=== PATIENT | male | born 1940 | race Caucasian/White ===

== ENCOUNTER 2024-11-26 14:54 | Emergency (ER) | payer MEDICARE, OTHER, SELFPAY ==
[2024-11-26 14:56] VITALS: BP 144/72; PULSE 88; RESP 16; TEMP 36.6; O2SAT 96
--- NOTE | 2024-11-26 16:00 | ED.GENADULT ---
HPI - General Adult General Chief complaint: Recheck/Abnormal Lab/Rx Stated complaint: med refill Time Seen by Provider: 11/26/24 15:09 History of Present Illness HPI narrative: This is an 83-year-old male presenting for medication refill. He ran out of his metoprolol 200 mg extended-release and [facility] [employer] [facility] [place]. Patient has no complaints at this time. Would like a refill of his medications. Exam Narrative: APPEARANCE: No apparent distress. Head: atraumatic. EYES: EOMI, NOSE: Atraumatic NECK: Trachea midline RESPIRATORY: No increased rate of breathing clear to auscultation CARDIOVASCULAR: RRR, no peripheral edema ABDOMINAL: Non-distended MUSCULOSKELETAl: No obvious deformities NEURO: Alert. Moving 4/4 extremities SKIN:: Warm, dry. Normal color PSYCHIATRIC: Normal affect Course Vital Signs Vital signs: Vital Signs Temperature 97.8 F 11/26/24 14:56 Pulse Rate 88 11/26/24 14:56 Respiratory Rate 16 11/26/24 14:56 Blood Pressure 144/72 H 11/26/24 14:56 Pulse Oximetry 96 11/26/24 14:56 Oxygen Delivery Room Air 11/26/24 14:56 Temperature 97.8 F 11/26/24 14:56 Pulse Rate 88 11/26/24 14:56 Respiratory Rate 16 11/26/24 14:56 Blood Pressure 144/72 H 11/26/24 14:56 Pulse Oximetry 96 11/26/24 14:56 Oxygen Delivery Room Air 11/26/24 14:56 Medical Decision Making MDM Narrative Medical decision making narrative: -Course: 83-year-old male requesting refill on his Toprol. This was provided. Patient discharged Vital Signs Vital Signs: Vital Signs Temperature 97.8 F 11/26/24 14:56 Pulse Rate 88 11/26/24 14:56 Respiratory Rate 16 11/26/24 14:56 Blood Pressure 144/72 H 11/26/24 14:56 Pulse Oximetry 96 11/26/24 14:56 Oxygen Delivery Room Air 11/26/24 14:56 Temperature 97.8 F 11/26/24 14:56 Pulse Rate 88 11/26/24 14:56 Respiratory Rate 16 11/26/24 14:56 Blood Pressure 144/72 H 11/26/24 14:56 Pulse Oximetry 96 11/26/24 14:56 Oxygen Delivery Room Air 11/26/24 14:56 Discharge Plan Discharge Clinical Impression: Encounter for medication refill Patient Disposition: Home Condition: Stable Instructions: Antibiotic Form, Medicine Refill (ED) Patient Language: [place] Prescriptions: New metoprolol succinate 200 mg tablet extended release 24 hr 200 mg PO DAILY Qty: 30 0RF Follow-up/Referrals: PHYSICIAN NOT ON STAFF,NONSTAFF [Primary Care Provider] -
--- NOTE | 2024-11-26 16:13 | PC.NURSE ---
patient to [facility] asking if he can go due to MD telling him he will refill his prescription. pt advised to wait in room until nurse comes with discharge papers. patient back in room and Ale Sanchez RN aware.
--- OUTSIDE RECORDS SUMMARY | 2024-11-26 16:20 | XMS_ITS | Clinical Summary ---
Author Organization [facility] Address formerly [facility] [place] [address] Care Team Providers Care Testing Shaking Shipping Name Role Phone Imer Ledesma MD Primary Care Provider [phone] Allergies Active Allergy Reactions Criticality Noted Date Comments Atorvastatin Leg Pain,Myalgias,Unknown Medium 01/10/20 Citric Acid Itching,Throat swelling,Anaphylaxis High 08/31/2024 citric acid Simvastatin Hives Low 10/16/2007 Medications REFRESH PLUS 0.5 % ophthalmic solution Place into both eyes as needed. 12/16/2023 Active fluticasone propionate (FLONASE) 50 MCG/ACT nasal spray 1 spray by Each Nostril route daily as needed for Rhinitis. 10/19/2024 Active gabapentin (NEURONTIN) 300 MG capsule Take 2 capsules (600 mg total) by mouth daily. 10/19/2024 Active JANUVIA 100 MG tablet Take 1 tablet (100 mg total) by mouth daily. 10/19/2024 Active PRADAXA 150 MG Cap daily. 10/19/2024 Active metoprolol succinate ER (TOPROL-XL) 200 MG 24 hr tablet 1 tablet (200 mg total) daily. 10/19/2024 Active torsemide (DEMADEX) 20 MG tablet Take 1 tablet (20 mg total) by mouth as needed. 10/19/2024 Active SYNTHROID 75 MCG tablet every morning. 10/19/2024 Active rosuvastatin (CRESTOR) 40 MG tablet Take 1 tablet (40 mg total) by mouth daily. 10/19/2024 Active Active Problems Problem Noted Date Diagnosed Date Other cirrhosis of liver (CMS/HCC HHS/HCC) 11/26 History of esophageal varices 11/26/2024 Ischemic cardiomyopathy 10/20/2024 Overview (10/20/2024): [employer]link Evera ICD implanted 08/10/2016 for ICM/CAD Atrial tachycardia ([facility]/HCC) 10/15/2024 Atypical chest pain 10/15/2024 Vitreous degeneration of both eyes 10/15/2024 History of transient ischemic attack 10/15/2024 History of tricuspid valve repair 10/15/2024 Ventricular premature depolarization 10/15/2024 Aneurysm of aortic root ([facility]/HCC) 09/16/2024 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) 09/16/2024 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/16/2024 Arteriosclerosis of coronary artery 09/16/2024 Overview (09/16/2024): Aug 17, 2024 Entered By: GAVI KENT Comment: CABG, stents Anxiety 09/16/2024 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, stage III 09/16/2024 Carcinoma of prostate ([facility]) 09/17/19 25 Cerebrovascular accident (CVA) ([facility]) 09/16/2024 Overview (09/16/2024): Jan 24, 2009 Entered By: JERMAINE JUAN MD Comment: 11/16 cerebellar Heart failure with reduced e jection fraction ([facility]) 09/16/2024 Hyperlipidemia 09/16/2024 Persistent atrial fibrillation ([facility]) 09/16/2024 Presence of automatic cardioverter/defibrillator (AICD) 09/16/2024 Overview (10/20/2024): Carelink Evera ICD implanted 08/10/2016 for ICM/CAD Sick sinus syndrome ([facility]) 09/16/2024 Stage 3 chronic kidney disease 09/16/2024 Type 2 diabetes mellitus wit h diabetic chronic kidney disease 09/16/2024 Aneurysm of thoracic aorta 06/30/2024 Coronary atherosclerosis 06/30/2024 Esophageal varices without bleeding ([facility]) 06/30/2024 Tricuspid valve disorder 06/30/2024 Essential hypertension 06/30/2024 Type 2 diabetes mellitus ([facility]) 06/29 Interstitial lung disease ([facility]) 10/2023 Encounters Date Type Department Care Team Description 11/26/2024 Orders Only [facility]ispec[facility]ty Care - [facility] [address] [facility] [place] [id number] Yfn Jaffe MD 11/25/2024 11:20 AM CDT [facility] [address] [facility] [facility] [place] [phone] Tiffani Castro NP New Patient (Establish care ) 11/25/2024 Travel 10/27/2024 Results Follow-Up [facility], [place] [address] Mariaelena Faith RN USE ECHOCARDIOGRAM W CON 10/23/2024 11:00 AM CDT - 10/23/2024 11:59 PM CDT Hospital Encounter [facility] [place] [address] Mark Salazar MD Discharge Disposition: Home or Self Care (Routine Discharge) 10/23/2024 Travel 10/20/2024 Scan [facility], [address] [address] Scanned, Doc Pccl 10/20/2024 Scan [facility], [address] [address] Kiah Diaz MA 10/19/2024 12:30 PM CDT Office Visit [facility], [address] [place] [address] Manfred Hudson MD Sick Sinus Syndrome (Medt Pacer) 10/19/2024 Travel 09/16/2024 11:15 AM CDT Office Visit [facility], [facility] [address] [place] [address] Mark Salazar MD Atrial Fibrillation (Consult) 09/16/2024 Travel 08/31/2024 10:54 AM CDT - 08/31/2024 11:53 AM CDT Hospital Encounter [facility] [address] [place] [address] Ellie Gutierrez DO Sinus Problem Discharge Disposition: Home or Self Care (Routine Discharge) 08/31/2024 Travel from Last 3 Months Family History Medical History Relation Comments No Known Problems Brother Heart Attack Father Lung Cancer Father Stroke Father No Known Problems Mother Relation Status Comments Brother Father Mother Social History Tobacco Use Types Packs/Day Years Used Date Smoking Tobacco: Never Passive Smoke Exposure: Never Smokeless Tobacco: Never Tobacco Cessation:Counseling Given: No Alcohol Use Standard Drinks/Week Comments Never 0 (1 standard drink = 0.6 oz pur e alcohol) PHQ-2 Answer Date Recorded Patient Health Questionnaire-2 Score 0 11/25/2024 Sex and Gender Information Value Date Recorded Sex Assigned at Male 07/02/2024 11:08 AM MEDICAL RECORDS ADMINISTRATOR Legal Sex Male 11:07 AM MEDICAL RECORDS ADMINISTRATOR Gender Identity Male 11/25/2024 11:29 AM CDT Sexual Orientation Not on file Last Filed Vital Signs Vital Sign Reading Time Taken Comments Blood Pressure 130/76 11/25/2024 11:29 AM CDT Pulse 80 11/25/2024 11:29 AM CDT Temperature 36.4 C (97.5 F) 11/25/2024 11:29 AM CDT Respiratory Rate 22 11/25/2024 11:29 AM CDT Oxygen Saturation 98% 11/25/2024 11:29 AM CDT Inhaled Oxygen Concentration - - Weight 96.2 kg (212 lb) 11/25/2024 11:29 AM CDT Height 185.4 cm (6' 1) 11/25/2024 11:29 AM CDT Body Mass Index 27.97 11/25/2024 11:29 AM CDT Plan of Treatment Upcoming Encounters Date Type Department Care Team (Late st Contact Info) Description 12/15/2024 9:[address] [facility] [place] [address] Tiffani Castro NP [address] [facility] [address] [place] [address] 12/21/2024 8:20 AM CDT Office Visit [facility] Mult[facility] Care - [facility] [address] [facility] [place] [address] Omari Christie MD [address] [place] [address] [address] [place] [address] 12/29/2024 10:30 AM CDT Office Visit [facility], [address] [place] [address] Mark Salazar MD [address] [facility] [address] [place] [address] 01/25/2025 2:05 PM CDT Allied Health/Nurse Visit [facility], [address] [place] [address] Manfred Hudson MD [address] [facility]. [address] [place] [address] 07/19/2025 11:00 AM MEDICAL RECORDS ADMINISTRATOR Hospital Encounter [facility] One Day [place] [address] Yfn Jaffe MD [address] [facility] [address] [place] [address] 07/19/2025 11:00 AM MEDICAL RECORDS ADMINISTRATOR - 07/19/2025 11:30 AM MEDICAL RECORDS ADMINISTRATOR Surgery [facility] Endo/[place] [address] Yfn Jaffe MD [address] [facility] [address] [place] [address] EGD 10/25/2025 11:15 AM CDT Office Visit [facility], [address] [place] [address] Manfred Hudson MD [address] [facility]. [address] [place] [address] Scheduled Procedures Name Priority Associated Diagnoses Date/Ti me EGD Other cirrhosis of liver (CMS/HCC HHS/HCC) History of esophageal varices 07/19/2025 11:00 AM MEDICAL RECORDS ADMINISTRATOR Health Maintenance Due Date Last Done Comments ASCVD LDL 1940 Kidney Health Evaluation 1940 Hemoglobin A1C 1940 Lipid Panel 1940 Diabetes: Retinopathy Eye Exam 12/28/1959 Annual Medicare Wellness Visit 2006 RSV Immunization or 60+ Years (1 - 1-dose 75+ series) 2016 COVID-19 Vaccine ( - season) 2024 04/21/2021, 08/06/2020, 07/02/2020 DTaP, Tdap and Td Vaccines (4 - Td or Tdap) 08/18/2024 08/18/2014, 08/08/2014, 11/20/2013, Additional history exists Pneumococcal Vaccine: 50+ Years Completed 05/03/2014, 06/06/2012, 07/14/2007, Additional history exists Zoster Vaccines Completed 04/16/2023, 0 02/2021, 02/10/2021, Additional history exists PHQ-2 (Physician [place]) Completed 11/25/2024 Meningococcal B Vaccine Aged Out No l onger eligible based on patient's age to complete this topic Meningococcal Vaccine Aged Out No mundo amparo eligible based on patient's age to complete this topic RSV Immunizations Under 20 Months Aged Out No longer eligible based on patient's age to complete this topic Goals Goal Patient Goal Type Associated Problems Recent Progress Patient-Stated? Author Autogenera merrick Goal Care Plan Autogenerated Problem No Fatuma Hooper, [facility] Medical Devices Implanted Type Area Acquisitions Logistics Analyst Device Identifier Shelf Expiration Date Model / Serial / Lot Ra Lead [id number] /14/2010 Implanted:Qty : 1 on 09/21/2009 Lead Implant [employer] CARDIAC RHYTHM AND HEART FAILURE - DIV M [id number] / [id number] / Description:RA-Appendage Rv Lead [id number]-Ter-5 /14/2010 Implanted:Qty : 1 on 09/21/2009 Lead Implant [employer] CARDIAC RHYTHM AND HEART FAILURE - DIV M [id number] / [id number] / Description:RV-[place] Pacemaker-Mdt -Ever-08/11/19 17 Implanted:Qty : 1 on 08/10/2016 Pacemaker [employer] CARDIAC RHYTHM AND HEART FAILURE - DIV M [id number] / [id number] / Procedures Procedure Name Priority Date/Time Associated Diagnosis Comments USE ECHOCARDIOGRAM W CON Routine 025 12:05 PM CDT Ischemic cardiomyopathy ELECTROCARDIOGRAM (NON MIDMARK ACQUIRED) Routine 09/16/2024 11:15 AM CDT Atrial fibrillation ([facility]) CORONAVIRUS (COVID 19) STAT 11:25 AM CDT STREP A RAPID STAT 08/31/2024 11:25 AM CDT from Last 3 Months Results * USE ECHOCARDIOGRAM W CON (10/23/2024 12:05 PM CDT) Anatomical Region Laterality Modality NA Echocardiogram 10/23/2024 11:1 7 AM CDT Narrative 10/26/2024 4:32 PM CDT Echocardiography Report Pat.Name: ORIANA SAVAGE Pat.ID: [id number] .Date: 10/23/2024 : [id number] SHANITAFIA Estes EWDPROV EWDPROV Exam Time: 11:17:00 AM Study Type:ECHO WITH CARDIAC DOPPLER COMP Height: 73 in Weight: 211 lb BSA: 2.2 m2 Age: 7 1940,83Y Sex: M BP: 143/77 HR: 73 bpm Sonogrphr: Liz Juarez [facility] Pat. Stat.:Outpatient Reason for Study:Cardiomyopathy-ischemic Procedures: 2D, M-mode, Doppler, Color Flow, Definity was used to enhance endocardial definition. The study quality is technically difficult. Race: W ++++++++++++++++++++++++++++++++++++ SUMMARY: ++++++++++++++++++++++++++++++++++++ The left ventricular size is normal. The left ventricular systolic function is mildly depressed. Estimated left ventricular ejection fraction is 45-50%. Mild concentric left ventricular hypertrophy. Left ventricular diastolic function is not reliably assessed. Moderate hypokinesis anteroseptal wall. The right ventricular size is normal. Right ventricular systolic function is mildly depressed. A pacemaker wire is visualized in the right ventricle and right atrium. The left atrial size is mildly enlarged. Right atrial size is mildly enlarged. Mild aortic regurgitation. Normally functioning tissue prosthetic tricuspid valve. A trace of tricuspid regurgitation. Mean gradient 4 mmHg ++++++++++++++++++++++++++++++++++++ FINDINGS: ++++++++++++++++++++++++++++++++++++ LV: The left ventricular size is normal. The left ventricular systolic function is mildly depressed. Estimated left ventricular ejection fraction is 45-50%. Mild concentric left ventricular hypertrophy. Left ventricular diastolic function is not reliably assessed. WM: Moderate hypokinesis anteroseptal wall. RV: The right ventricular size is normal. Right ventricular systolic function is mildly depressed. A pacemaker wire is visualized in the right ventricle. IVS: No evidence of ventricular septal defect. LA: The left atrial size is mildly enlarged. The left atrial volume is mildly increased (34- 41ml/M2). RA: Right atrial size is mildly enlarged. A pacemaker wire is visualized in the right atrium. IAS: Atrial septum appears intact. STEFFI: No evidence of pericardial effusion. AO: Normal aortic root. The aortic root measures 3.8 cm. The proximal ascending aorta measures 3.7cm. PA: Estimated right atrial pressure of 8 mmHg. SVn: Inferior vena cava is mildly enlarged. Inferior vena cava shows >50% collapse with respiration consistent with normal right atrial pressure. AV: The aortic valve is trileaflet. No evidence of aortic valve stenosis. Mild aortic regurgitation. Mild calcification of aortic valve leaflets. MV: Trace mitral regurgitation. No evidence of mitral valve stenosis. PV: Trace pulmonic regurgitation. No evidence of pulmonic valve stenosis. TV: A trace of tricuspid regurgitation. Mean gradient 4 mmHg Normally functioning tissue prosthetic tricuspid valve. ++++++++++++++++++++++++++++++++++++ MEASUREMENTS: ++++++++++++++++++++++++++++++++++++ DOPPLER LVOT LVOTpkPG 2 mmHg LVOTmnPG 1 mmHg LVOTpkVel 61.7 cm/s (70-110)+* LVOT SV 55 ml LVOT TVI 14.4 cm Pulmonary Veins PVnpkVeld 43.3 cm/s PVnVs/Vd 0.6 PVnpkVels 27.6 cm/s PVn A Dur 141 msec AV Forward Flow AV TVI 25.4 cm AV pkPG 5 mmHg AV pkVel 107 cm/s (100-170)+ Area (TVI) 2.15 cm2 (3-5)* AV mnPG 2 mmHg Area (Chris) 2.19 cm2 (3-5)* AV Regurg Flow AV pkVel 394 cm/s AV P1/2t 553 msec AV pkPG 62 mmHg MV Forward Flow MV mnPG 2 mmHg MV pkPG 5 mmHg PV Forward Flow PV pkVel 90.1 cm/s (60-90)+* PV AC 129 msec PV pkPG 3 mmHg PV Regurg Flow PV pkVel 82.5 cm/s TV Forward Flow TV mnVel 92.8 cm/s TV E/A 1.3 TV mnPG 4 mmHg TV pkE 106 cm/s TV pkPG 6 mmHg TV pkA 80.2 cm/s TV TVI 45.4 cm Lat E' Lat e 8.08 cm/s Med E' Med e 5.34 cm/s Aortic Valve Aortic Valve Ar 0.98 Aortic Valve Ve 0.58 PV Antegrade Flow Acceleration Sl 721 cm/s2 PV Regurgitant Flow Peak Gradient ( 3 mmHg Right Ventricle Right Ventricle 7.15 cm/s TV Antegrade Flow Peak Velocity 126 cm/s 2D Left Ventricle LVIDd 5.3 cm (3.6-5.2)* LV ESV 41.4 ml LVIDs 4.4 cm (2.3-3.9)* LV ESV 55.2 ml LngAxd 7.44 cm LVESV BP 48.7 ml LngAxd 8.44 cm LV EF 46.2 % LV EDV 77.1 ml LV EF 50.7 % LV EDV 112 ml LV EF BP 50.6 % LVEDV BP 98.6 ml LV SV 35.6 ml LngAxs 6.8 cm LV SV 56.8 ml LngAxs 7.18 cm LV SV BP 49.9 ml LVPW LVPWd 0.9 cm Right Ventricle RVIDd 2.8 cm (2.6-4.3) Right Ventricle 32 mm Right Ventricle 37 mm Right and Left 0.528 Major Conover 79 mm Ventricular Septum IVSd 1.2 cm Left Atrium LA VOLBP 87.7 ml Aorta Ao Rtd 4 cm (zsc 2.8)* LVOT LVOT 2.2 cm LVOTArea 3.8 cm2 Ratios IVS LA Biplane LAVol I BP 39.9 ml/m2 MMODE Ratios LA/Ao 1.15 (0.87-1.1)* Left Atrium LAIDs 4.6 cm TA Tricuspid Annul 15.1 mm <Electronic Signature> 10/26/2024 04:32 PM Mark Salazar M.D. Procedure Note Mark Salazar MD - 10/26/2024 Echocardiography Report Pat.Name: ORIANA SAVAGE Pat.ID: [id number] .Date: 10/23/2024 : [id number] MARTIN Estes EWDPROV EWDPROV Exam Time: 11:17:00 AM Study Type:ECHO WITH CARDIAC DOPPLER COMP Height: 73 in Weight: 211 lb BSA: 2.2 m2 Age: 7 1940,83Y Sex: M BP: 143/77 HR: 73 bpm Sonogrphr: Liz Juarez [facility] Pat. Stat.:Outpatient Reason for Study:Cardiomyopathy-ischemic Procedures: 2D, M-mode, Doppler, Color Flow, Definity was used to enhance endocardial definition. The study quality is technically difficult. Race: W ++++++++++++++++++++++++++++++++++++ SUMMARY: ++++++++++++++++++++++++++++++++++++ The left ventricular size is normal. The left ventricular systolic function is mildly depressed. Estimated left ventricular ejection fraction is 45-50%. Mild concentric left ventricular hypertrophy. Left ventricular diastolic function is not reliably assessed. Moderate hypokinesis anteroseptal wall. The right ventricular size is normal. Right ventricular systolic function is mildly depressed. A pacemaker wire is visualized in the right ventricle and right atrium. The left atrial size is mildly enlarged. Right atrial size is mildly enlarged. Mild aortic regurgitation. Normally functioning tissue prosthetic tricuspid valve. A trace of tricuspid regurgitation. Mean gradient 4 mmHg ++++++++++++++++++++++++++++++++++++ FINDINGS: ++++++++++++++++++++++++++++++++++++ LV: The left ventricular size is normal. The left ventricular systolic function is mildly depressed. Estimated left ventricular ejection fraction is 45-50%. Mild concentric left ventricular hypertrophy. Left ventricular diastolic function is not reliably assessed. WM: Moderate hypokinesis anteroseptal wall. RV: The right ventricular size is normal. Right ventricular systolic function is mildly depressed. A pacemaker wire is visualized in the right ventricle. IVS: No evidence of ventricular septal defect. LA: The left atrial size is mildly enlarged. The left atrial volume is mildly increased (34- 41ml/M2). RA: Right atrial size is mildly enlarged. A pacemaker wire is visualized in the right atrium. IAS: Atrial septum appears intact. STEFFI: No evidence of pericardial effusion. AO: Normal aortic root. The aortic root measures 3.8 cm. The proximal ascending aorta measures 3.7cm. PA: Estimated right atrial pressure of 8 mmHg. SVn: Inferior vena cava is mildly enlarged. Inferior vena cava shows >50% collapse with respiration consistent with normal right atrial pressure. AV: The aortic valve is trileaflet. No evidence of aortic valve stenosis. Mild aortic regurgitation. Mild calcification of aortic valve leaflets. MV: Trace mitral regurgitation. No evidence of mitral valve stenosis. PV: Trace pulmonic regurgitation. No evidence of pulmonic valve stenosis. TV: A trace of tricuspid regurgitation. Mean gradient 4 mmHg Normally functioning tissue prosthetic tricuspid valve. ++++++++++++++++++++++++++++++++++++ MEASUREMENTS: ++++++++++++++++++++++++++++++++++++ DOPPLER LVOT LVOTpkPG 2 mmHg LVOTmnPG 1 mmHg LVOTpkVel 61.7 cm/s (70-110)+* LVOT SV 55 ml LVOT TVI 14.4 cm Pulmonary Veins PVnpkVeld 43.3 cm/s PVnVs/Vd 0.6 PVnpkVels 27.6 cm/s PVn A Dur 141 msec AV Forward Flow AV TVI 25.4 cm AV pkPG 5 mmHg AV pkVel 107 cm/s (100-170)+ Area (TVI) 2.15 cm2 (3-5)* AV mnPG 2 mmHg Area (Chris) 2.19 cm2 (3-5)* AV Regurg Flow AV pkVel 394 cm/s AV P1/2t 553 msec AV pkPG 62 mmHg MV Forward Flow MV mnPG 2 mmHg MV pkPG 5 mmHg PV Forward Flow PV pkVel 90.1 cm/s (60-90)+* PV AC 129 msec PV pkPG 3 mmHg PV Regurg Flow PV pkVel 82.5 cm/s TV Forward Flow TV mnVel 92.8 cm/s TV E/A 1.3 TV mnPG 4 mmHg TV pkE 106 cm/s TV pkPG 6 mmHg TV pkA 80.2 cm/s TV TVI 45.4 cm Lat E' Lat e 8.08 cm/s Med E' Med e 5.34 cm/s Aortic Valve Aortic Valve Ar 0.98 Aortic Valve Ve 0.58 PV Antegrade Flow Acceleration Sl 721 cm/s2 PV Regurgitant Flow Peak Gradient ( 3 mmHg Right Ventricle Right Ventricle 7.15 cm/s TV Antegrade Flow Peak Velocity 126 cm/s 2D Left Ventricle LVIDd 5.3 cm (3.6-5.2)* LV ESV 41.4 ml LVIDs 4.4 cm (2.3-3.9)* LV ESV 55.2 ml LngAxd 7.44 cm LVESV BP 48.7 ml LngAxd 8.44 cm LV EF 46.2 % LV EDV 77.1 ml LV EF 50.7 % LV EDV 112 ml LV EF BP 50.6 % LVEDV BP 98.6 ml LV SV 35.6 ml LngAxs 6.8 cm LV SV 56.8 ml LngAxs 7.18 cm LV SV BP 49.9 ml LVPW LVPWd 0.9 cm Right Ventricle RVIDd 2.8 cm (2.6-4.3) Right Ventricle 32 mm Right Ventricle 37 mm Right and Left 0.528 Major Conover 79 mm Ventricular Septum IVSd 1.2 cm Left Atrium LA VOLBP 87.7 ml Aorta Ao Rtd 4 cm (zsc 2.8)* LVOT LVOT 2.2 cm LVOTArea 3.8 cm2 Ratios IVS LA Biplane LAVol I BP 39.9 ml/m2 MMODE Ratios LA/Ao 1.15 (0.87-1.1)* Left Atrium LAIDs 4.6 cm TA Tricuspid Annul 15.1 mm <Electronic Signature> 10/26/2024 04:32 PM Mark Salazar M.D. 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1940 Requested By: MARK SALAZAR Order Number: [id number] Reading MD: Zach Tapia Measurements Intervals Conover Rate: 72 P: -23 HI: 273 QRS: 8 QRSD: 102 T: 18 QT: 394 QTc: 434 Interpretive Statements ELECTRONIC ATRIAL PACEMAKER ABNORMAL RHYTHM ECG Procedure Note Zach Tapia MD - 09/22/20[facility]: 2024-[facility]-16 Pat Name: ORIANA SAVAGE Department: 112 Room: 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1940 Requested By: MARK SALAZAR Order Number: [id number] Reading MD: Zach Tapia Measurements Intervals [place] Rate: 72 P: -23 HI: 273 QRS: 8 QRSD: 102 T: 18 QT: 394 QTc: 434 Interpretive Statements ELECTRONIC ATRIAL PACEMAKER ABNORMAL RHYTHM ECG us Mark Salazar MD PROCEDURES-ORDERABLE NO Salma UREÑA Final Result SIRISHA CABRERA * CORONAVIRUS (COVID 19) (08/31/2024 11:25 AM CDT) CORONAVIRUS SARS COV 2 RNA NEGATIVE NEGATIVE 08/31/2024 11:43 AM CDT [facility] Comment: NEGATIVE RESULTS DO NOT RULE OUT COVID 19 AND SHOULD NOT BE USED THE SOLE BASIS FOR TREATMENT OR PATIENT MANAGEMENT DECISIONS, INCLUDING INFECTION CONTROL DECISIONS. NEGATIVE RESULTS SHOULD BE CONSIDERED IN THE CONTEXT OF A PATIENT'S RECENT EXPOSURES, HISTORY AND THE PRESENCE OF CLINICAL SIGNS AND SYMPTOMS CONSISTENT WITH COVID 19. THE ID NOW COVID-19 2.0 TEST HAS BEEN AUTHORIZED BY THE FDA UNDER EAU FOR USE BY AUTHORIZED LABORATORIES. PERFORMED BY NUCLEIC ACID AMPLIFICATION FOR MOLECULAR QUALITATIVE DETECTION OF SARS-COV-2. SPECIMEN TYPE NASAL 08/31/2024 11:27 AM CDT [facility] NASAL STRUCTURE / Unknown 08/31/2024 11:25 AM CDT Ellie Gutierrez DO MICROBIOLOGY - GENERAL ORDERA BLES Final Result Performing Organization Address City/[facility] [place] [address], * STREP A RAPID (08/31/2024 11:25 AM CDT) SPECIMEN TYPE THROAT 08/31/2024 11:27 AM CDT [facility] RAPID STREP TEST NEGATIVE NEGATIVE 08/31/2024 11:37 AM CDT [facility] STRUCTURE OF ANTERIOR PORTION OF NECK / Unknown 08/31/2024 11:25 AM CDT Ellie Gutierrez DO MICROBIOLOGY - GENERAL ORDERA BLES Final Result Performing Organization Address [facility] [place] [address], from Last 3 Months Additional Health Concerns Active Problems Noted Date Diagnosed Date Autogenerated Problem 11/26/2024 Insurance MEDICARE [facility] Care Teams Testing Shaking Shipping Relationship Specialty Start Date End Date Imer Ledesma MD [address] [facility] [address] [place] [id number] PCP - General INTERNAL MEDICINE 08/31/24
--- OUTSIDE RECORDS SUMMARY | 2024-11-26 16:20 | XMS_ITS | Encounter Summary ---
Author Organization [facility] Address [facility] [place] [address] Care Team Providers Care Door Paneler Name Role Phone Imer Ledesma MD Primary Care Provider [phone] Reason for Referral * Surgical (Routine) - New Request Specialty Diagnoses / Procedures Referred By Contac t Referred To Contact Diagnoses Other cirrhosis of liver (CMS/HCC HHS/HCC) History of esophageal varices Procedures Case request operating room: EGD Yfn Jaffe MD [address] [place] [address] [place] [address] Phone: tel: fax: Referral ID Status Reason Start Date Expiration Date V isits Requested Visits Authorized [id number] New Request 11/26/2024 11/26/2025 1 1 Encounter Details Date Type Department Care Team (Late st Contact Info) Description 11/26/2024 Orders Only [facility] Multispecialty Care - [address] [place] [address] Yfn Jaffe MD [address] [place] [address] [address] [place], [place] [id number] Social History Tobacco Use Types Packs/Day Years Used Date Smoking Tobacco: Never Passive Smoke Exposure: Never Smokeless Tobacco: Never Alcohol Use Standard Drinks/Week Comments Never 0 (1 standard drink = 0.6 oz pur e alcohol) PHQ-2 Answer Date Recorded Patient Health Questionnaire-2 Score 0 11/25/2024 Sex and Gender Information Value Date Recorded Sex Assigned at Male 07/02/2024 11:08 AM DOCK OPERATIONS SUPERVISOR Legal Sex Male 11:07 AM DOCK OPERATIONS SUPERVISOR Gender Identity Male 11/25/2024 11:29 AM CDT Sexual Orientation Not on file documented as of this encounter Plan of Treatment Upcoming Encounters Date Type Department Care Team (Late st Contact Info) Description 12/15/2024 9:30 AM CDT Appointment [facility] [place] [address] Tiffani Castro NP [address] [facility] [address] [place] [address] 12/21/2024 8:20 AM CDT Office Visit [facility] Multispecialty Care - [facility] [address] [facility] [address] [place] [address] Omari Christie MD 3rd [facility] [address] [place] [address] 12/29/2024 10:30 AM CDT Office Visit [facility] THREE [facility], [address] [place] [address] Mark Whaley MD Three [facility]., [address] [place] [address] 01/25/2025 2:05 PM CDT [facility] THREE [facility], [address] [place] [address] Manfred Hudson MD Three [facility]. [address] [place] [address] 07/19/2025 11:00 AM DOCK OPERATIONS SUPERVISOR Hospital Encounter [facility] [place] [address] Yfn Jaffe MD 3 [facility] [address] [place] [address] 07/19/2025 11:00 AM DOCK OPERATIONS SUPERVISOR - 07/19/2025 11:30 AM DOCK OPERATIONS SUPERVISOR Surgery [place] [facility] ONE [facility] [place] [address] Yfn Jaffe MD 3 [facility] [address] [place] [address] EGD 10/25/2025 11:15 AM CDT Office Visit [facility] THREE [facility], [address] [place] [address] Manfred Hudson MD Three [facility]. [address] [place] [address] Scheduled Orders Name Type Priority Associated Diagnoses Orde r Schedule Case request operating room: EGD Case Request Routine Other cirrhosis of liver (CMS/HCC HHS/HCC) History of esophageal varices Ordered: 11/26/2024 Scheduled Procedures Name Priority Associated Diagnoses Date/Ti mn EGD Other cirrhosis of liver (CMS/HCC HHS/HCC) History of esophageal varices 07/19/2025 11:00 AM DOCK OPERATIONS SUPERVISOR documented as of this encounter Goals Goal Patient Goal Type Associated Problems Recent Progress Patient-Stated? Author Autogenera merrick Goal Care Plan Autogenerated Problem No Fatuma [place] [facility] documented as of this encounter Visit Diagnoses Diagnosis Other cirrhosis of liver (CMS/HCC HHS/HCC)- Primary History of esophageal varices Personal history of other diseases of digestive system Other cirrhosis of liver (CMS/HCC HHS/HCC) History of esophageal varices Personal history of other diseases of digestive system Other cirrhosis of liver (CMS/HCC HHS/HCC) History of esophageal varices Personal history of other diseases of digestive system documented in this encounter Additional Health Concerns Active Problems Noted Date Diagnosed Date Autogenerated Problem 11/26/2024 documented as of this encounter Care Teams Door Paneler Relationship Specialty Start Date End Date Imer Ledesma MD [address] [facility] [address] [place] [address] PCP - General INTERNAL MEDICINE 08/31/24 documented as of this encounter
--- OUTSIDE RECORDS SUMMARY | 2024-11-26 16:20 | XMS_ITS | Encounter Summary ---
Author Organization [facility] Address [address] [place] [address] Care Team Providers Care Set Designer Name Role Phone Imer Ledesma MD Primary Care Provider [phone] Encounter Details Date Type Department Care Team (Latest Contact Info) Description 11/25/2024 Travel Social History Tobacco Use Types Packs/Day Years Used Date Smoking Tobacco: Never Passive Smoke Exposure: Never Smokeless Tobacco: Never Alcohol Use Standard Drinks/Week Comments Never 0 (1 standard drink = 0.6 oz pur e alcohol) PHQ-2 Answer Date Recorded Patient Health Questionnaire-2 Score 0 11/25/2024 Sex and Gender Information Value Date Recorded Sex Assigned at Male 07/02/2024 11:08 AM TRANSLITERATOR Legal Sex Male 11:07 AM TRANSLITERATOR Gender Identity Male 11/25/2024 11:29 AM CDT Sexual Orientation Not on file documented as of this encounter Functional Status * Over the past 2 weeks, how often have you been bothered by any of the following problems? Question Answer Date of Assessment Author Status Little interest or pleasure in doing things Not at all 11/25/2024 11:29 AM CDT Kim Slater MA Active Feeling down, depressed, or hopeless Not at all 11/25/2024 11:29 AM CDT Pattie Slater MA Active Patient Health Questionnaire-2 Score 0 11/25/2024 11:29 AM CDT Iram Slater MA Active documented as of this encounter Plan of Treatment Upcoming Encounters Date Type Department Care Team (Late st Contact Info) Description 12/15/2024 9:30 AM CDT Appointment [facility] [address] Tiffani Castro NP [address] [facility] [address] [place] [address] 12/21/2024 8:20 AM CDT Office Visit [facility] Multispecialty Care - [facility] [address] [facility] [place] [address] Omari Christie MD 3rd [facility] [address] [place] [address] 12/29/2024 10:30 AM CDT Office Visit [facility], [address] [place] [address] Mark Whaley MD Three [facility] [address] [place] [address] 01/25/2025 2:05 PM CDT Allied Health/Nurse Visit [facility] THREE [facility], [address] [place] [address] Manfred Hudson MD Three [facility]. [address] [place] [address] 07/19/2025 11:00 AM TRANSLITERATOR Hospital Encounter [facility] One Day [facility] ONE [facility] [place] [address] Yfn Jaffe MD 3 [facility] [address] [place] [address] 07/19/2025 11:00 AM TRANSLITERATOR - 07/19/2025 11:30 AM TRANSLITERATOR Surgery [place] ONE [facility] [place] [address] Yfn Jaffe MD 3 [facility] [address] [place] [address] EGD 10/25/2025 11:15 AM CDT Office Visit [facility], [address] [place] [address] Manfred Hudson MD Three [facility]. [address] [place] [address] Scheduled Procedures Name Priority Associated Diagnoses Date/Ti me EGD Other cirrhosis of liver (CMS/HCC HHS/HCC) History of esophageal varices 07/19/2025 11:00 AM TRANSLITERATOR documented as of this encounter Visit Diagnoses Not on filedocumented in this encounter Care Teams Set Designer Relationship Specialty Start Date End Date Imer Ledesma MD [address] [facility] [address] [place] [address] PCP - General INTERNAL MEDICINE 08/31/24 documented as of this encounter
--- OUTSIDE RECORDS SUMMARY | 2024-11-26 16:20 | XMS_ITS | Encounter Summary ---
Author Organization [facility] Address [facility], [facility] [place] [address] Care Team Providers Care Director Facilities Maintenance Name Role Phone Imer Ledesma MD Primary Care Provider [phone] Reason for Referral * Imaging (Routine) - New Request Specialty Diagnoses / Procedures Referred By Sesar medina Referred To Contact RADIOLOGY Diagnoses Other cirrhosis of liver (CMS/HCC HHS/HCC) Procedures [facility] Tiffani Castro NP [address] [facility] [address] [place] [address] Phone: tel: fax: Referral ID Status Reason Start Date Expiration Date V isits Requested Visits Authorized [id number] New Request 11/25/2024 11/25/2025 1 1 Reason for Visit * Reason Comments New Patient Establish care * Consultation/Treatment (Routine) - New Request Specialty Diagnoses / Procedures Referred By Contac t Referred To Contact GASTROENTEROLOGY Diagnoses Esophageal varices without bleeding (CMS/HCC HHS/HCC) Imer Ledesma MD [address] [facility] [address] [place] [address] Phone: tel: fax: [facility] Multispecialty Care - [facility] [address] [facility] [place] [address] Phone: tel: fax: Referral ID Status Reason Start Date Expiration Date V isits Requested Visits Authorized [id number] New Request 10/02/2024 1 1 Encounter Details Date Type Department Care Team (Latest Contact Info) Description 11/25/2024 11:20 AM CDT Office Visit [facility] Multispecialty Care - [facility] [address] [facility] [address] [place] [address] Tiffani Castro, TED [address] [facility] [address] [place] [address] New Patient (Establish care ) Social History Tobacco Use Types Packs/Day Years Used Date Smoking Tobacco: Never Passive Smoke Exposure: Never Smokeless Tobacco: Never Tobacco Cessation:Counseling Given: No Alcohol Use Standard Drinks/Week Comments Never 0 (1 standard drink = 0.6 oz pur e alcohol) PHQ-2 Answer Date Recorded Patient Health Questionnaire-2 Score 0 11/25/2024 Sex and Gender Information Value Date Recorded Sex Assigned at Male 07/02/2024 11:08 AM FOURDRINIER MACHINE TENDER Legal Sex Male 11:07 AM FOURDRINIER MACHINE TENDER Gender Identity Male 11/25/2024 11:29 AM CDT Sexual Orientation Not on file documented as of this encounter Last Filed Vital Signs Vital Sign Reading [...] Mass Index 27.97 11/25/2024 11:29 AM CDT documented in this encounter Functional Status * Over the past 2 weeks, how often have you been bothered by any of the following problems? Question Answer Date of Assessment Author Status Little interest or pleasure in doing things Not at all 11/25/2024 11:29 AM LUISANAT Kim Slater MA Active Feeling down, depressed, or hopeless Not at all 11/25/2024 11:29 AM CDT Pattie Slater MA Active Patient Health Questionnaire-2 Score 0 11/25/2024 11:29 AM CDT Iram Slater MA Active documented as of this encounter Progress Notes * Tiffani Castro, TED - 11/25/2024 11:20 AM CDT Images from the original note were not included. GASTROENTEROLOGY CONSULT 11/25/2024 1:08 PM Reason for Visit: New Patient (Establish [facility] ) History of Present Illness: Lars Savage is a 83-year-old male who presents today to establish care with h/o esophageal varices. Referral placed by PCP Dr. Ledesma. Patient was exposed to agent orange during the [place] War which caused him to develop significant cardiac disease later on. His progressive HF impacted his liver health and he was dx with cirrhosis sometime in 2006 just prior to undergoing tricuspid valve repair via a pig valve. He reports a h/o esophageal varices, however believes there was no evidence of varices during last EGD in 2022. Was alternating CT scans and EGDs annually for surveillance of cirrhosis but no recent labs. He did have [facility] comprehensive work-up initially to r/o viral or autoimmune hepatobiliary disease. He is current with vaccines. Last colonoscopy was in 2022 and was told he did not need any further screening colo noscopies given his age. No change in bowel habits. Denies melena, hematochezia, diarrhea, constipation, abdominal pain, N/V, dysphagia, or heartburn. Appetite appropriate. No unexplained weight loss. No hx of hepatitis infection NSAID/Anticoagulant use: None Past Medical History[1] Past Surgical History[2] Family History[3] Social History[4] Medications Taking[5] Review of patient's allergies indicates: Allergen Reactions Citric Acid Itching, Throat swelling and Anaphylaxis citric acid Atorvastatin Leg Pain, Myalgias and Unknown Simvastatin Hives REVIEW OF SYSTEMS: Review of Systems Constitutional: Negative for unexpected weight change. Respiratory: Negative for shortness of breath. Cardiovascular: Negative for leg swelling. Gastrointestinal: Per HPI Musculoskeletal: Negative for joint swelling. Skin: Negative for rash. Neurological: Negative for dizziness and headaches. Psychiatric/Behavioral: Negative for confusion. The patient is not nervous/anxious. PHYSICAL EXAM: Filed Vitals: 11/25/24 1129 BP: 130/76 Pulse: 80 Resp: 22 Temp: 97.5 ??F (36.4 ??C) TempSrc: Temporal SpO2: 98% Weight: 96.2 kg (212 lb) Height: 1.854 m (6' 1) Wt Readings from Last 1 Encounters: 11/25/24 96.2 kg (212 lb) Physical Exam Vitals reviewed. Constitutional: Appearance: Normal appearance. Cardiovascular: Rate and Rhythm: Normal rate and regular rhythm. Pulmonary: Breath sounds: Normal breath sounds. Abdominal: General: Bowel sounds are normal. There is no distension. Palpations: Abdomen is soft. There is no mass. Tenderness: There is no abdominal tenderness. There is no guarding or rebound. Hernia: No hernia is present. Musculoskeletal: Right lower leg: No edema. Left lower leg: No edema. Skin: General: Skin is warm and dry. Findings: No rash. Neurological: Mental Status: He is alert and oriented to person, place, and time. Psychiatric: Mood and Affect: Mood normal. Behavior: Behavior normal. Labs: No results found for: WBC, RBC, HGB, HCT, RDW, PLT, NA, K, CL, AGAP, GLU, BUN, CR, GFRNON, GFR, CA, MAGNESIUM, ALB, ALT, AST, ALKP Imaging: None Endoscopies: 04/2023 EGD and Colonoscopy Repeat EGD in two yrs for surveillance No further screening colonoscopy recommended Assessment 1. Other cirrhosis of liver (CMS/HCC HHS/HCC) - US ABD LIMITED; Future - AFP TUMOR MARKER; Future - LIVER FIBROSIS PANEL; Future - FERRITIN; Future - PROTIME/INR, VENOUS; Future - COMPREHENSIVE METABOLIC PANEL; Future - [id number], TOTAL; Future - IRON SAT PANEL (IRON,IBC,%SAT); Future 2. History of esophageal varices Recommendations/Plan: Schedule EGD for surveillance for esophageal varices with h/o cirrhosis secondary to right-sided HF Labs and abdominal US as ordered for surveillance. Discussed he will need surveillance every 6 months and will alternate between abdominal US and CT scan A/P It is recommended to consume 20-35 grams of fiber per day and at least 64 ounces/2 liters of water per day. All questions answered More recommendations to follow endoscopic evaluation Risks/Benefits/Options: Risks, benefits and alternatives of the procedure(s) were discussed which can include but are not limited to: discomfort, missing lesions, allergic or adverse reaction to the sedation, perforation ofthe bowel or upper GI tract which may require hospitalization and surgery, bleeding, infection, aspiration. All questions were answered, patient is in agreement to proceed as planned. Orders placed this encounter: Orders Placed This Encounter AFP TUMOR MARKER LIVER FIBROSIS PANEL FERRITIN PROTIME/INR, VENOUS COMPREHENSIVE METABOLIC PANEL [id number], TOTAL IRON SAT PANEL (IRON,IBC,%SAT) ABD LIMITED Tiffani Castro NP Gastroenterology [1] Past Medical History: Diagnosis Date Cancer (CMS/HCC HHS/HCC) Disorder of thyroid Gallbladder disease High cholesterol Kidney disease Liver disease Lung disease Peripheral neuropathy Prostate disorder Syncope Type 2 diabetes mellitus without complications (CMS/HCC HHS/HCC) [2] Past Surgical History: Procedure Laterality Date CABG, VEIN, THREE HC LEAD, PACEMAKER/CARDIOVERTER-DEFIBRILLATOR COMBINATION [3] Family History Problem Relation Name Age of Onset No Known Problems Mother Stroke Father Heart Attack Father Lung Cancer Father No Known Problems Brother [4] Social History Tobacco Use Smoking status: Never Passive exposure: Never Smokeless tobacco: Never Vaping Use Vaping status: Never Used Substance Use Topics Alcohol use: Never Drug use: Never [5] Outpatient Medications Marked as Taking for the 11/25/24 encounter (Office Visit) with Tiffani Castro NP Medication Sig Dispense Refill fluticasone propionate (FLONASE) 50 MCG/ACT nasal spray 1 spray by Each Nostril route daily as needed for Rhinitis. gabapentin (NEURONTIN) 300 MG capsule Take 2 capsules (600 mg total) by mouth daily. JANUVIA 100 MG tablet Take 1 tablet (100 mg total) by mouth daily. metoprolol succinate ER (TOPROL-XL) 200 MG 24 hr tablet 1 tablet (200 mg total) daily. PRADAXA 150 MG Cap daily. REFRESH PLUS 0.5 % ophthalmic solution Place into both eyes as needed. rosuvastatin (CRESTOR) 40 MG tablet Take 1 tablet (40 mg total) by mouth daily. SYNTHROID 75 MCG tablet every morning. torsemide (DEMADEX) 20 MG tablet Take 1 tablet (20 mg total) by mouth as needed. documented in this encounter Plan of Treatment Upcoming Encounters Date Type Department Care Team (Late st Contact Info) Description 12/15/2024 9:30 AM CDT Appointment [facility] Ultrasound ONE [facility] [place] [address] Tiffani Castro NP [address] [facility] [address] [place] [address] 12/21/2024 8:20 AM CDT Office Visit [facility] Group Multispecialty Care - [facility] 3 [facility], [address] [place] [address] Omari Christie MD 3rd [facility] [address] [place] [address] 12/29/2024 10:30 AM CDT [facility] THREE [facility], [address] [place] [address] Mark Whaley MD Three [facility], [address] [place] [address] 01/25/2025 2:05 PM CDT [facility] Health[facility] [address] [place] [address] Manfred Hudson MD Three [facility] [address] [place] [address] 07/19/2025 11:00 AM FOURDRINIER MACHINE TENDER Hospital Encounter [facility] One Day [facility] ONE [facility] [place] [address] Yfn Jaffe MD 3 [facility] [address] [place] [address] 07/19/2025 11:00 AM FOURDRINIER MACHINE TENDER - 07/19/2025 11:30 AM FOURDRINIER MACHINE TENDER Surgery [facility] Endo/GI ONE [facility] [place] [address] Yfn Jaffe MD 3 [facility] [address] [place] [address] EGD 10/25/2025 11:15 AM CDT [facility], [address] [place] [address] Manfred Hudson MD Three [facility]. [address] [place] [address] Scheduled Orders Name Type Priority Associated Diagnoses Orde r Schedule US ABD LIMITED Ultrasound Routine Other cirrhosis of liver (CMS/HCC HHS/HCC) Expected: 11/25/2024, Expires: 11/25/2025 AFP TUMOR MARKER Lab Routine Other cirrhosis of liver (CMS/HCC HHS/HCC) Expected: 11/25/2024, Expires: 05/27/2025 LIVER FIBROSIS PANEL Lab Routine Other cirrhosis of liver (CMS/HCC HHS/HCC) Expected: 11/25/2024, Expires: 02/25/2025 FERRITIN Lab Routine Other cirrhosis of liver (CMS/HCC HHS/HCC) Expected: 11/25/2024, Expires: 02/25/2025 PROTIME/INR, VENOUS Lab Routine Other cirrhosis of liver (CMS/HCC HHS/HCC) Expected: 11/25/2024, Expires: 05/27/2025 COMPREHENSIVE METABOLIC PANEL Lab Routine Other cirrhosis of liver (CMS/HCC HHS/HCC) Expected: 11/25/2024, Expires: 05/27/2025 [id number], TOTAL Lab Routine Other cirrhosis of liver (CMS/HCC HHS/HCC) Expected: 11/25/2024, Expires: 05/27/2025 IRON SAT PANEL (IRON,IBC,%SAT) Lab Routine Other cirrhosis of liver (CMS/HCC HHS/HCC) Expected: 11/25/2024, Expires: 02/25/2025 Scheduled Procedures Name Priority Associated Diagnoses Date/Ti me EGD Other cirrhosis of liver (CMS/HCC HHS/HCC) History of esophageal varices 07/19/2025 11:00 AM FOURDRINIER MACHINE TENDER documented as of this encounter Visit Diagnoses Diagnosis Other cirrhosis of liver (CMS/HCC HHS/HCC)- Primary History of esophageal varices Personal history of other diseases of digestive system Other cirrhosis of liver (CMS/HCC HHS/HCC) History of esophageal varices Personal history of other diseases of digestive system documented in this encounter Care Teams Director Facilities Maintenance Relationship Specialty Start Date End Date Imer Ledesma MD [address] [facility] [address] [place] [address] PCP - General INTERNAL MEDICINE 08/31/24 documented as of this encounter
--- OUTSIDE RECORDS SUMMARY | 2024-11-26 16:20 | XMS_ITS | Patient Health Record ---
Author Organization [facility] Billing Info Address [address] [place], [place] [id number] Care Team Providers Care Wire Rope Sling Maker Name Role Phone LAKESHA WHITAKER Unavailable [phone] Allergies Allergen (clinical drug ingredient) Drug/Non Drug Allergy documented on EMR Reaction Allergy Type Onset Date Status atorvastatin Lipitor leg pain Drug Allergy Acti ve Reason For Referral No Information Medications Medication SIG (Take, Route, Frequency, Duration) Notes Start Date End Date Status Toprol XL 100 MG 1full+0.5 tablet Orally Once a day Active Rosuvastatin Calcium 40 MG 1 tablet Orally Once a day for 30 day(s) pt unsure of dosage Active Gabapentin 300 MG 3 capsule Orally Once a day pt unsure dosage Active Torsemide 40 MG 2 tablet Orally Once a day Active Protonix 20 MG 1 tablet Orally Once a day for 30 day(s) Active Pradaxa 150 MG 1 capsule Orally Twice a day for 30 day(s) Active Problems Problem Type SNOMED Code ICD Code Onset Dates Problem Status W/U Status Risk Notes Problem 567780653 Paroxysmal atria l fibrillation (I48.0) Active confirmed Problem 074087048 Ischemic heart disease (I25.9) Active confirmed Problem 877712045 Atherosclerosis of [place] coronary artery of [place] heart without angina pectoris (I25.10) Active confirmed Problem [id number] H/O tricuspid va lve replacement (Z95.2) Active confirmed Problem 847412643 Presence of card iac defibrillator (Z95.810) Active confirmed Plan Of Treatment No Information Insurance Providers Payer Name Payer Address Payer Phone Subscriber Number Group Number Insured Name Patient Relationship to Insured Coverage Start Date Coverage End Date [place] B [address] [employer] DOMINGUEZ [id number] ChanningLars meyer Self - patient is the insured 7 7 FOR LIFE ALL [facility] [address] [place], [place] [id number] [phone] [id number] Lars Guerra Self - patient is the insured 1 1 Medical (General) History Medical History History ICD Code sinus node dysfunction with syncope (198 0s) multiple device systems dati ng back to 1987, s/p 6 leads extracted in 2009; current ICD implanted in 2009, last gen change 2016 reflex/neurocardiogenic syncope, was on fludrocortisone previously ischemic heart disease with prior CABG 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
--- OUTSIDE RECORDS SUMMARY | 2024-11-26 16:20 | XMS_ITS | Data Portability ---
Author Organization [place] - [facility], [facility] Address [address] [facility] [address] [place] [address] Assessment No assessment recorded. Plan of Treatment Reminders Order Date Submit Date Provider Last Modified By Organization Details Last Modified Time Details Appointments Follow Up 15 2024 01:00P M Imer Ledesma MD Not available Not available Not available Lab HbA1c (hemoglob in A1c), blood 2024 025 BITA Not available 09/12/2024 06:21:42 HbA1c (hemoglob in A1c), blood 2024 025 BITA Not available 07/08/2024 04:03:12 Referral gastroent erologist referral 2024 025 BITA Jaffe MD, [address] [facility], [address], [place], [address], 10/28/2024 04:05:17 gastroent erologist referral 2024 025 BITA Jaffe MD, [address] [facility], [address], [place], [address], 10/28/2024 04:05:17 dermatolo gist referral [address] [facility], [address] [place] [address] , [place], [address], 11/05/2024 13:07:41 pulmonolo gist referral 2024 025 BITA [facility], [address] [facility], [place], [address], 09/30/2024 04:03:[address] referral 2024 025 [email or web address] Luis Browning OD, [address], [place], [address], 07/30/2024 16:08:05 pulmonolo gist referral 2024 025 [facility], [address] [facility], [place], [address], 07/29/2024 04:01:50 urologist referral 2024 025 [facility], [address] [place] [address] [address], [address], [place], [address], 07/29/2024 04:01:50 cardiolog ist referral 2024 025 [facility], [address] [facility], [address], [place], [address], 07/29/2024 04:01:49 Procedures None recorded. Surgeries None recorded. Imaging None recorded. Medication Orders gabapenti n 300 mg capsule 2024 025 [facility], [address] [place] [address], [address], 09/30/2024 15:03:10 Pradaxa 150 mg capsule 2024 025 [facility], [address] [place] [address], [address], 09/30/2024 15:03:06 Patient TargetsNo targets recorded. Patient Instructions Encounter Date Encounter Id Patient Instructions Last Modified By Organization Details Last Modified Time 06/30/2024 [id number] thoracic aortic aneurysm: care instructions Not available 07/01/2024 15:05:03 Home Blood Sugar Test: About This Test Not available 07/01/2024 15:05:04 learning about type 2 diabetes [email or web address] Not available 07/01/2024 15:05:04 type 2 diabetes: care instructions [email or web address] Not available 07/01/2024 15:05:04 Nonalcoholic Fatty Liver Disease (NAFLD): Care Instructions [email or web address] Not available 07/01/2024 15:05:03 esophageal varices: care instructions [email or web address] Not available 07/01/2024 15:05:03 high blood pressure: care instructions [email or web address] Not available 07/01/2024 15:05:03 learning about high blood pressure [email or web address] Not available 07/01/2024 15:05:03 hypothyroidism: care instructions [email or web address] Not available 07/01/2024 15:05:04 I spent a total of 55 minutes (excluding separately reportable procedure time ) in care of this patient. [email or web address] Not available 07/01/2024 15:05:12 09/02/2024 [id number] thoracic aortic aneurysm: care instructions Not available 09/02/2024 16:19:37 Nonalcoholic Fatty Liver Disease (NAFLD): Care Instructions [email or web address] Not available 09/02/2024 16:19:37 esophageal varices: care instructions [email or web address] Not available 09/02/2024 16:19:37 high blood pressure: care instructions [email or web address] Not available 09/02/2024 16:19:37 learning about high blood pressure Not available 09/02/2024 16:19:37 hypothyroidism: care instructions [email or web address] Not available 09/02/2024 16:19:37 I spent a total of _27 minutes (excluding separately reportable procedure time ) in care of this patient. [email or web address] Not available 09/02/2024 15:47:19 09/30/2024 [id number] thoracic aortic aneurysm: care instructions [email or web address] Not available 09/30/2024 15:03:02 Nonalcoholic Fatty Liver Disease (NAFLD): Care Instructions [email or web address] Not available 09/30/2024 15:03:02 esophageal varices: care instructions [email or web address] Not available 09/30/2024 15:03:02 actinic keratosis: care instructions [email or web address] Not available 09/30/2024 15:03:02 high blood pressure: care instructions [email or web address] Not available 09/30/2024 15:03:02 learning about high blood pressure [email or web address] Not available 09/30/2024 15:03:02 hypothyroidism: care instructions [email or web address] Not available 09/30/2024 15:03:02 I spent a total of _32 minutes (excluding separately reportable procedure time ) in care of this patient. [email or web address] Not available 09/30/2024 14:58:43 Reason for Referral Entertainment Manager Referral for Typ e 2 diabetes mellitus Referring Physician: Imer Ledesma Internal Medicine, Encounter Date: 06/30/2024 Truck Hop Referral for Ch ronic atrial fibrillation Referring Physician: Imer Ledesma Internal Medicine, Encounter Date: 06/30/2024 Occupational Therapy Director Referral for F ibrosis of lung Referring Physician: Imer Ledesma Internal Medicine, Encounter Date: 06/30/2024 Urologist Referral for Urina ry incontinence Referring Physician: Imer Ledesma Internal Medicine, Encounter Date: 06/30/2024 Occupational Therapy Director Referral for F ibrosis of lung Referring Physician: Imer Ledesma Internal Medicine, Encounter Date: 09/02/2024 Ad Operations Associate Referral for Metabolic dysfunction-associated steatohepatitis Referring Physician: Imer Ledesma Internal Medicine, Encounter Date: 09/30/2024 Ad Operations Associate Referral for Esophageal varices without bleeding Referring Physician: Imer Ledesma Internal Medicine, Encounter Date: 09/30/2024 E Learning Coordinator Referral for A ctinic keratosis Referring Physician: Imer Ledesma Internal Medicine, Encounter Date: 09/30/2024 Results Created Date Observation Date Name Description Value Unit Range Abnormal Flag Note LastModifiedBy Organization Detail LastModifiedTime 09/12/1909/12/2024 HEMOG LOBIN A1C hemoglobin A1C 6.3 % 4.8-5. 6 above high normal Predi abete s: 5.7 - 6.4 Diabe ruth: >6.4 Glyce bree contr ol for adult s with diabe ruth: <7.0 Not Available [facility] ([facility]) [address] [facility], [place], [address], 09/12/2024 06:21:42 Result Notes None recorded. Problems Name Problem SNOMED Code Status Onset Date Resolution Date Notes Provider Name and Address Organization Details Recorded Time Exposure to Agent [place] Active 2024 Yuly Rogers [facility] 5 16:30:31 Diabetes mellitus 27535623 Active 2024 Imer Ledesma MD [address] [facility] [address], [place], [address], [facility] 5 17:30:53 Type 2 diabetes mellitus 49148671 Active 2024 Imer Ledesma MD [address] [facility] [address], [place], [address], [facility] 5 17:31:02 Essential hypertensio n 44928209 Active 2024 Imer Ledesma MD [address] [facility] [address], [place], [address], [facility] 5 14:56:47 Chronic atrial fibrillatio n 263571371 Active 2024 Imer Ledesma MD [address] [facility] [address], [place], [address], [facility] 5 14:56:53 Tricuspid valve disorder 91086641 [facility] 14:38:47 Idiopathic peripheral neuropathy 49165432 Active 2024 Imer Ledesma MD [address], [place], [address], [facility] 5 14:57:25 Aneurysm of thoracic aorta 590973339 Active 2024 Yuly Rogers [facility], [facility] 5 14:38:47 Metabolic dysfunction -associated steatohepat itis 403784729 Active 2024 Imer Ledesma MD [address], [place], [address], [facility] 5 14:57:43 Mixed hyperlipide sridhar 534197400 Active 2024 Imer Ledesma MD [address], [place], [address], [facility] 5 14:57:48 Fibrosis of lung 13780437 Active 2024 Imer Ledesma MD [address], [place], [address], [facility] 5 14:58:08 Hypothyroid ism 32406533 Active 2024 Imer Ledesma MD [address], [place], [address], [facility] 5 14:58:14 Restrictive lung disease 47622981 Active 2024 Imer Ledesma MD [address], [place], [address], [facility] 5 14:58:22 Bilateral cataracts 53507940 Active 2024 Imer Ledesma MD [address], [place], [address], [facility] 5 14:58:28 Urinary incontinenc e 052671365 Active 2024 Imer Ledesma MD [address] [facility] [address], [place], [address], [facility] 5 14:59:15 Esophageal varices without bleeding 41865016 Active 2024 [facility] 5 14:38:47 Coronary atheroscler osis 860160248 Active 2024 [facility] 5 14:38:47 Cellulitis of face 368143788 Active 2024 Imer Ledesma MD [address], [place], [address], [facility] 5 15:43:19 Cerebrovasc ular accident 571744165 Active 2024 [facility] 5 14:38:47 Interstitia l lung disease 050870091 Active 2023 [facility] 5 14:38:47 Carcinoma of prostate 774939312 Active 2024 [facility] 5 14:38:47 Benign hypertensiv e heart disease and chronic renal disease stage 3 1638658775348 02 Active 2024 [facility] 5 14:38:47 Sick sinus syndrome 00107961 Active 2024 [facility] 5 14:38:47 Aneurysm of aortic root 963355499 Active 2024 [facility] 5 14:38:47 Chronic kidney disease stage 3 504165993 Active 2024 [facility] 5 14:38:47 Persistent atrial fibrillatio n 728124369 Active 2024 [facility] 5 14:38:47 Cardiac pacemaker in situ 025348881 Active 2024 Yuly Eckart [facility] 14:38:47 Anomalous origin of right coronary artery 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 Active 2024 [facility] 14:38:47 Anxiety 75588816 Active 2024 [facility] 14:38:47 Coronary arterioscle rosis 80350835 Active 2024 [facility] 14:38:47 Hyperlipide sridhar 00108574 Active 2024 [facility] 14:38:47 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 Procedures Surgical History Date Name Laterality Status Provider Name and Address Organization Details Recorded Time 07/11/19 24 male artificial urinary sphincter procedure completed [facility] 06/30/2024 16:18:10 06/10/19 14 tricuspid valve operation completed [facility] 06/30/2024 16:22:38 06/10/19 07 radical prostatectomy completed MD Neela Arteaga [address] [facility] [address], [place], [address], [facility] 06/30/2024 17:29:47 06/10/18 88 [facility] 06/30/2024 15:59:16 Imaging Results None recorded. Procedure Notes None recorded. Medical Equipment None Reported. Allergies Allergen ID Allergen Name Allergen Category Reaction Reaction Severity Criticality Documentation Date Start Date Code Code System Note Provider Name and Address Organization Details Recorded Time 2264 Lipitor medicatio n Not available Not available low 06/30/2024 [address] [facility] [facility] 5 16:14:55 2265 citric acid medicatio n anaphylax is Not available low 06/30/[address] [facility] 5 16:15:08 2525 citric acid medicatio n anaphylax is itching Not available Not available Not available 09/02/20242024 07226 RxNorm Other react ions and sever ities : 'Thro at swell ing'. [facility] 5 15:22:10 2603 atorvasta tin calcium medicatio n myalgias (muscle pain) Not available Not available 09/30/20242023 43909 RxNorm Other react ions and sever ities : 'Leg Pain' , and 'Unkn own'. [facility] 5 14:36:42 Medications Name Sig Start Date Stop Date Status Note LastModified by Organization Details LastModified Time torsemide 20 mg tablet Take 1 tablet every day by oral route. active Not Available Not Available No t Available metoprolol succinate ER 200 mg tablet,exte nded release 24 hr 2024 active Not Available Not Available Not Avai lable Refresh Plus 0.5 % eye drops in a dropperette active Not Available Not Available Not Available carboxymeth ylcellulose sodium 0.5 % eye drops 2023 active Not Available Not Available Not Avai lable Synthroid 75 mcg tablet Take 1 tablet every day by oral route. active Not Available Not Available No t Available gabapentin 300 mg capsule Take 3 capsules every day by oral route at bedtime for 90 days. 2024 active Not Available Not Available Not Avai lable fluticasone propionate 50 mcg/actuati on nasal spray,suspe nsion 1 {spray} by nasal route. 2024 active Not Available Not Available Not Avai lable amoxicillin 875 mg-forest m clavulanate 125 mg tablet 875 mg twice a day by oral route. 09/08 completed Not Available Not Available Not Available rosuvastati n 40 mg tablet 2024 active Not Available Not Available Not Avai lable Januvia 100 mg tablet Take 1 tablet every day by oral route for 100 days. 2024 active Not Available Not Available Not Avai lable Pradaxa 150 mg capsule Take 1 capsule twice a day by oral route. 2024 active Not Available Not Available Not Avai lable Vitals Date Recorded Body temperature Body height Body mass index (BMI) Body weight Heart rate Respiratory rate Oxygen saturation Oxygen saturation in Arterial blood by Pulse oximetry Systolic blood pressure Diastolic blood pressure Provider Name and Address Organization Details Last Updated DateTime 5 98 [degF] 185.42 cm 27.2 kg/m2 53715.0 3 g 60 /min 18 /min 97 % 97 % 120 mm[Hg] 62 mm[Hg] [facility] 5 16:14:16 Date Recorded Body height Body temperature Body mass index (BMI) Body weight Heart rate Respiratory rate Oxygen saturation Oxygen saturation in Arterial blood by Pulse oximetry Systolic blood pressure Diastolic blood pressure Provider Name and Address Organization Details Last Updated DateTime 5 185.42 cm 97.2 [degF] 26.9 kg/m2 69432.8 4 g 61 /min 20 /min 97 % 97 % 104 mm[Hg] 60 mm[Hg] [facility] 5 15:20:41 Date Recorded Body height Body temperature Body mass index (BMI) Body weight Heart rate Respiratory rate Oxygen saturation Oxygen saturation in Arterial blood by Pulse oximetry Systolic blood pressure Diastolic blood pressure Provider Name and Address Organization Details Last Updated DateTime 5 185.42 cm 98.2 [degF] 27.1 kg/m2 65334.5 1 g 84 /min 18 /min 95 % 95 % 110 mm[Hg] 70 mm[Hg] Yuly Rogers [place] - [facility] 5 14:34:00 Social History None recorded. Functional Status None recorded. Mental Status None recorded. Family History Nothing Reported Notes:brother-cancer father- multiple stroke, diabetic mother-Alzheimer's Medical History No medical history recorded. Past Encounters Encounter ID Performer Location Encounter Start Date Encounter Closed Date Diagnosis/Indication Diagnosis SNOMED-CT Code Diagnosis ICD10 Code Diagnosis Note [id number] Imer Ledesma MD [facility] [address] [place] [address] 06/30/2024 15:29:32 06/30/2024 17:34:19 Type 2 diabetes mellitus 73154114 E11.9 A1 C 05/03: 6.7Januvia started 100 mg dailyConti nue sameReche k A1cc prior to next visitBlood glucose monitoring and diet reviewed with the patient Essential hypertension 75710172 I10 Blood pressure optimalOn torsemide 20 g daily, metoprolol ER 200 mg daily Chronic at rial fibrillation 380379570 I48.20 On metoprolol 200 mg ER dailyPrada xa 150 milligrams dailyDiscu ssed optimal dosing of 150 mg twice dailyThis might have been lowered by cardiologi st he assumes Cardiac pa cemaker in situ 073695547 Z95.0 Status post pacemaker implantati on 1987 Tricuspid valve disorder 71371400 I36.9 History of of tricuspid valve regurgitat ion status post tricuspid valve replacemen t 2013 in [facility] Idiopathic peripheral neuropathy 47723851 G60.9 On gabapentin Exposure t o Agent [place] 908493227 Z77.29 Exposure to agent orange in the past Aneurysm o f thoracic aorta 655560496 I71.20 History of thooracic aortic aneurysm Metabolic dysfunction-associate d steatohepatitis 449124689 K75.81 Related to tricuspid valve regurgitat ion and right heart failure Mixed hyperlipidemia 267 543165 E78.2 On rosuvastat in 40 mg dailyLipid profile 05/03 normal Fibrosis of lung 1068911 1 J84.10 Chest x-ray with findings of fibrosis of lungHe states CT chest was performed the result is not availableS pirometry done showed restrictiv e airway disease. He was supposed to follow-up with pulmonary Hypothyroidism 10101339 E03.9 TSH 5.88. Synthroid was increased to 88 mcg daily on 05/03 Restrictiv e lung disease 72585834 J98.4 Spirometry with restrictio n consistent with restrictiv e airway diseaseNo full PFT was doneFollow -up with pulmonary Bilateral cataracts 9572 2003 H26.9 Status post cataract surgery Coronary atherosclerosis 186048130 I25.10 CCoronary artery diseasse status post CABG in 2000 History of malignant neoplasm of prostate 434658426 Z85.46 Status post radical prostatect roula 2007 Urinary incontinence 165 494904 R32 Post prostatect omyStatus post artificial urethral sphincter placement with improvemen t in 2023 Esophageal varices without bleeding 18914518 I85.00 History of esophageal varices however no history of banding reported. Last done in 2015We will continue to monitor [id number] Imer Ledesma MD [facility] [address] [place] [address] 09/02/2024 14:53:45 09/02/2024 15:52:09 Type 2 diabetes mellitus 99601064 E11.9 A1 C 05/03: 6.7Januvia started 100 mg dailyConti nue sameRechec k A1cc prior to next visitBlood glucose monitoring and diet reviewed with the patient Essential hypertension 12658824 I10 Blood pressure optimalOn torsemide 20 g daily, metoprolol ER 200 mg daily Chronic at rial fibrillation 806171400 I48.20 On metoprolol 200 mg ER dailyPrada xa 150 milligrams dailyDiscu ssed optimal dosing of 150 mg twice dailyThis might have been lowered by cardiologi st he assumes Cardiac pa cemaker in situ 518958019 Z95.0 Status post pacemaker implantati on 1987 Tricuspid valve disorder 61957847 I36.9 History of of tricuspid valve regurgitat ion status post tricuspid valve replacemen t 2013 in [facility] Idiopathic peripheral neuropathy 08154000 G60.9 On gabapentin Exposure t o Agent [place] 186244431 Z77.29 Exposure to agent orange in the past Aneurysm o f thoracic aorta 932786061 I71.20 History of thoracic aortic aneurysm Metabolic dysfunction-associate d steatohepatitis 075213868 K75.81 Related to tricuspid valve regurgitat ion and right heart failure Mixed hyperlipidemia 267 888862 E78.2 On rosuvastat in 40 mg dailyLipid profile 05/03 normal Fibrosis of lung 3895510 1 J84.10 Chest x-ray with findings of fibrosis of lungHe states CT chest was performed the result is not availableS pirometry done showed restrictiv e airway disease. He was supposed to follow-up with pulmonaryd id not get call from them.will refer again Hypothyroidism 09188712 E03.9 TSH 5.88. Synthroid was increased to 88 mcg daily on 05/03 Restrictiv e lung disease 16345197 J98.4 Spirometry with restrictio n consistent with restrictiv e airway diseaseNo full PFT was doneFollow -up with pulmonary Bilateral cataracts 9572 2003 H26.9 Status post cataract surgery Coronary atherosclerosis 148092588 I25.10 Coronary artery disease status post CABG in 2000 History of malignant neoplasm of prostate 916708813 Z85.46 Status post radical prostatect roula 2006 Urinary incontinence 165 843495 R32 Post prostatect omyStatus post artificial urethral sphincter placement with improvemen t in 4planne d cystoscopy by dr. Castellano Esophageal varices without bleeding 50606176 I85.00 History of esophageal varices however no history of banding reported. Last done in 2015We will continue to monitor Transition of care from emergency department to self-care 3481405142 42674 Z76.89 emergency note reviewedre viewed test results and reviewed with the patientsym ptoms improving and continue with current plan Cellulitis of face 2001 L03.211 on currently on augmentin. celluitsi improving [id number] Imer Ledesma MD [facility] [address] [facility] [address] [place] [address] 09/30/2024 14:26:12 09/30/2024 15:07:25 Type 2 diabetes mellitus 58722750 E11.9 A1 C 05/03: 6.7Januvia started 100 mg dailyConti nue sameBlood glucose monitoring and diet reviewed with the patient09/09 5: 6.3 Essential hypertension 80142522 I10 Blood pressure optimalOn torsemide 20 g daily, metoprolol ER 200 mg daily Chronic at rial fibrillation 713757363 I48.20 On metoprolol 200 mg ER dailyPrada xa 150 milligrams dailyDiscu ssed optimal dosing of 150 mg twice daily: will switch to twice a day Cardiac pa herbaker in situ 935264285 Z95.0 Status post pacemaker implantati on 1987going to see EP october 2024 Tricuspid valve disorder 34511570 I36.9 History of of tricuspid valve regurgitat ion status post tricuspid valve replacemen t 2013 in [facility] Idiopathic peripheral neuropathy 26663455 G60.9 On gabapentin will increase to 900 mg nightly Exposure t o Agent [place] 786355046 Z77.29 Exposure to agent orange in the past Aneurysm o f thoracic aorta 087626949 I71.20 History of thoracic aortic aneurysm Metabolic dysfunction-associate d steatohepatitis 753775031 K75.81 Related to tricuspid valve regurgitat ion and right heart failurewil l refer to GI. Mixed hyperlipidemia 267 245334 E78.2 On rosuvastat in 40 mg dailyLipid profile 05/03 normal Fibrosis of lung 9218749 1 J84.10 Chest x-ray with findings of fibrosis of lungHe states CT chest was performed the result is not availableS pirometry done showed restrictiv e airway disease. He was supposed to follow-up with pulmonaryd id not get call from them.refer red to Pulmonary and yet to see them Hypothyroidism 31750126 E03.9 TSH 5.88. Synthroid was increased to 88 mcg daily on 05/03 Restrictiv e lung disease 30586539 J98.4 Spirometry with restrictio n consistent with restrictiv e airway diseaseNo full PFT was doneFollow -up with pulmonary Bilateral cataracts 9572 2003 H26.9 Status post cataract surgery Coronary atherosclerosis 949862851 I25.10 Coronary artery disease status post CABG in 2000 History of malignant neoplasm of prostate 901545963 Z85.46 Status post radical prostatect roula 2007psa undetectab le at urology office Urinary incontinence 165 716057 R32 Post prostatect omyStatus post artificial urethral sphincter placement with improvemen t in 2023s/p cystoscopy by dr. Castellano Esophageal varices without bleeding 40051122 I85.00 History of esophageal varices however no history of banding reported. Last done in 2015We will continue to monitorref er to GI for surveillan ce EGD Actinic keratosis 007 L57.0 refer to dermatolog y Health Concerns Section Related Observation LastModified by Organization Detai ls LastModified Time None Recorded Concern Status LastModified by Organization Details LastModified Time None Recorded Advance Directives Directive None Recorded Payers Insurance Date Sequence Insurance Name Policy Number Policy Diallo Covered Member ID Diallo Member ID Guarantor Name 09/27/2024 2 FOR LIFE () Lars Savage [id number] Lars Savage 09/27/2024 [facility] Lars Savage [id number] Lars Savage Notes Date Note Type Note Provider Name and Address Organization Details Recorded Time 06/30/2024 text/html Pt is here to establish care since recently relocating from [place]. He has complex medical problems which he is needing a referral for cardiologists, cancer spec, urologists, gastroenterological. Pt was exposed to agent orange in [id number] which has caused numerous medical problems. Medical records from Dr. Taylor reviewed. Pt denies any coughing, shortness of breath, nausea or vomiting. Denies any symptoms of atrial fibrillation. He does home over the phone [employer] pacemaker checks. Pt has recently been diagnosed with diabetes in 05/2024. Denies increased of thirst, frequent urination, blurred vision. Continues on Januvia daily. Imer Ledesma MD [address], [place], [address], [facility] 07/01/2024 15:05:17 09/02/2024 text/html Pt here for Urgi care follow up. Pt was seen in Urgi care on 08/31/2024 for swelling on left side of face. Dx: sinuitis. Pt states he removed a peanut from a pocket on the left side of gum. Swelling improved with abx. he is currenlty on augmentin. no chest pain, shortness of breath, nasuea or vomiting. Imer Ledesma MD [address], [place], [address], [facility] 09/02/2024 16:19:52 09/30/2024 text/html Pt here for foll ow up. C/O being fatigue. He is the primary manager utilities of . Pt is requesting GI referral for cirrhosis of liver. No chest pain, shortness of breath, nausea or vomiting. Imer Ledesma MD [address], [place], [address], [facility] 09/30/2024 15:03:49
== END 2024-11-26 16:37 | disposition home or self-care (01) ==
LOC: ANHED 16:16
PROVIDERS: Emergency Provider Emergency Medicine; PCP Internal Medicine
DX: I10 Essential (primary) hypertension (principal); Z76.0 Encounter for issue of repeat prescription
CPT/HCPCS: 99281